=== PATIENT | male | born 1960 | race Caucasian/White ===

== ENCOUNTER 2019-01-01 11:16 | Inpatient (IN) | payer OTHER ==
[~2019-01-01] VITALS: Ht 180.3 cm; Wt 104.3 kg
--- NOTE | ~2019-01-01 | HC ---
[facility] [place] [address] CONSULTATION Name: LAKESHIA AGUILAR Room #: 423-1 ADM IN ..#: [id number] Admission: 01/01/19 ������������������ Attend Phys: aDniel Soriano MD Discharge: ������������������ Date of : 60 Report #: [id number] THIS REPORT FOR: //name// CC: FAM unknown Daniel Soriano DATE OF SERVICE: 01/02/2019 REASON FOR CONSULTATION: Right ankle fracture. HISTORY OF PRESENT ILLNESS: The patient is a 58-year-old male who was walking, slipped on the ice and fell. He was unable to ambulate on the right leg. He complained of ankle pain and deformity. ER physician reports no open wounds. He underwent a closed reduction in the Emergency Department under conscious sedation and was admitted with apparently a well-padded splint. REVIEW OF SYSTEMS: NEUROLOGIC: Denies numbness or tingling. MUSCULOSKELETAL: See HPI. ALLERGIES: No known drug allergies reported. MEDICATIONS: Include, ramipril, simvastatin, aspirin, omeprazole. PAST SURGICAL HISTORY: He had a cardiac stent placed. SOCIAL HISTORY: Denies smoking or drinking alcohol. 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 LABORATORY DATA: Shows white blood cell count 10.4, hemoglobin 14.6, hematocrit 41.1, platelet count 217. INR is 1. Chemistry is grossly normal. PHYSICAL EXAMINATION: EXTREMITIES: Examination of his right lower extremity, distally neurovascularly intact. Brisk capillary refill and sensation is intact. EHL, FHL is intact. He has significant amount of tenderness at the ankle. The skin is not taut. Wrinkle test is questionable. There is no knee pain. No tenderness to palpation with range of motion of the knee. RADIOGRAPHS: AP, lateral and an attempted mortise view post reduction shows persistently significantly displaced trimalleolar ankle fracture with most likely an anterolateral component. IMPRESSION AND PLAN: Right trimalleolar ankle fracture in a 58-year-old male. I discussed the diagnosis as well as treatment options. I also discussed this with my partner, Dr. Baldemar Brown who most likely will be performing the [facility] [address] [place] [address] CONSULTATION Name: LAKESHIA AGUILAR Room #: 423-1 [facility] IN [facility].#: [id number] Admission: 01/01/19 ������������������ Attend Phys: Daniel Soriano MD Discharge: ������������������ Date of : 60 Report #: [id number] surgery. I discussed the typical procedure as well as postoperative course and Dr. Brown will continue the conversation in the preoperative holding area. Thank you very much for allowing me to assist in the care of this patient. ��������������������������������������������� ���������������������������������������� By: ��������������������������������������������� 0824 1824 Blanka Newton MD /nt
[2019-01-01] MEDS ORDERED: ALTACE2.5 MG PO (11:19)
[2019-01-01] MEDS ORDERED: SIMVASTATIN40 MG PO (11:19)
[2019-01-01] MEDS ORDERED: PRILOSEC 20 MG20 MG PO (11:20)
[2019-01-01] MEDS ORDERED: ADULT ASPIRIN R81 MG PO (11:20)
[2019-01-01 11:22] VITALS: BP 127/74
[2019-01-01 14:37] LABS: ABSOLUTE NEUTROPHILS 8.7 thou/uL (1.4-8.2); BASOPHILS 0.5 % (0.0-2.0); EOSINOPHILS 1.2 % (0.0-3.0); HEMATOCRIT 40.5 % (42.0-52.0); HEMOGLOBIN 14.5 gm/dL (14.0-18.0); LYMPHOCYTES 10.3 % (24.0-44.0); MCH 34.8 pg (26.0-34.0); MCHC 35.9 g/dL (28.0-37.0); MCV 96.9 fL (80.0-100.0); MONOCYTES 4.5 % (1.0-8.0); PLATELET COUNT 227 thou/uL (150-400); POLYS 83.5 % (36.0-66.0); RBC 4.17 mil/uL (4.50-6.00); RDW 12.5 % (10.5-14.5); WBC 10.5 thou/uL (4.0-11.0)
[2019-01-01 14:45] LABS: CALCIUM 8.5 mg/dL (8.5-10.1); CREATININE 0.9 mg/dL (0.7-1.3); POTASSIUM 4.1 mmol/L (3.5-5.1)
[2019-01-01 15:16] VITALS: BP 118/85
[2019-01-01 15:45] VITALS: BP 130/62
[2019-01-01 15:57] VITALS: BP 133/87
[2019-01-01 20:18] VITALS: BP 162/94
--- NOTE | 2019-01-01 20:25 | NUR ---
VSS-AFEBRILE. PAIN NOT WELL CONTROLLED WITH PRESCRIBED IV PAIN MEDICATIONS. CALL PLACED TO PHYSICIAN, AWAITING CALL BACK. IRRITABLE THAT HE HAS TO KEEP SPLINT IN PLACE, EDUCATED ON IMPORTANCE OF KEEPING ANKLE IMMOBILE UNTIL ORTHOPEDIC SURGEON DECIDES HOW TO TREAT. DID NOT BRING CPAP FROM HOME, RT TO PLACE HOSPITAL CPAP UNTIL PATIENTS IS BROUGHT FROM HOME. ALL SENSATION IS INTACT TO RIGHT LEG AND ANKLE, WARM TOES, SWOLLEN AND BRUISED, DID NOT UNWRAP THE ANKLE. ELEVATED ON TWO PILLOWS FOR COMFORT. TOLERATES MEALS WITH NO REPORTED N/V. VOIDS USING URINAL WITHOUT DIFFICULTY. FALL AGREEMENT SIGNED.
[2019-01-01 23:59] VITALS: BP 157/90
[2019-01-02] VITALS (7 sets, daily range): BP systolic 135–153; BP diastolic 65–85
--- NOTE | 2019-01-02 06:26 | NUR ---
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
[2019-01-02 06:31] LABS: HEMATOCRIT 41.1 % (42.0-52.0); HEMOGLOBIN 14.6 gm/dL (14.0-18.0); MCH 34.7 pg (26.0-34.0); MCHC 35.5 g/dL (28.0-37.0); MCV 97.7 fL (80.0-100.0); RBC 4.21 mil/uL (4.50-6.00); RDW 12.5 % (10.5-14.5); WBC 10.4 thou/uL (4.0-11.0)
[2019-01-02 06:41] LABS: CALCIUM 8.9 mg/dL (8.5-10.1); CREATININE 0.9 mg/dL (0.7-1.3); POTASSIUM 3.6 mmol/L (3.5-5.1)
--- NOTE | 2019-01-02 08:55 | NUR ---
Assumed pt care at 7am.Pt in bed aleert and oriented x4.c/o rt ankle pain rated 7/10.Noc rn gave pt fentanyl ivp with relief.Dr Newton here,order noted.Pt left for surgery per bed at 0825 accompanied by transporter.
--- NOTE | 2019-01-02 18:57 | O ---
[facility] [place] [address] OPERATIVE REPORT Name: LAKESHIA AGUILAR Room #: 423-1 ADM IN M.R.#: [id number] Admission: 01/01/19 ������������������ Attend Phys: Daniel Soriano MD Discharge: ������������������ Date of : 60 Report #: [id number] THIS REPORT FOR: //name// CC: FAM unknown Daniel Soriano DATE OF SERVICE: 01/02/2019 PREOPERATIVE DIAGNOSIS: Right ankle trimalleolar fracture dislocation. POSTOPERATIVE DIAGNOSIS: Right ankle trimalleolar fracture dislocation. PROCEDURE: Open reduction and internal fixation of right ankle fracture. SURGEON: Baldemar Brown MD. INDICATIONS: This 58-year-old gentleman fell injuring the right ankle. X-rays confirm a badly comminuted unstable fracture dislocation with involvement of both the medial, lateral and posterior compartments. I have discussed this with the patient reviewing treatment options. We have discussed that there is a posterior fragment, which may be difficult to reduce, but seems to involve a relatively small percentage of the articular surface. We discussed how this might interfere with optimal fracture reduction and reviewed options of either posterior approach to address this or simply deal with the medial and lateral fragments and except some posterior fragment dislocation. He understands and appreciates going ahead with surgery today hoping that we can manage with the least aggressive and invasive approach. DESCRIPTION OF PROCEDURE: The patient was taken to the operating room where he was placed under general anesthesia. Prophylactic intravenous antibiotics were administered. The right leg, foot and ankle were meticulously prepped and draped. C-arm was used to visualize the fracture, initially was found to be moderately displaced and obviously unstable. A thigh tourniquet was applied and inflated to 300 mmHg. A medial skin incision was made exposing the medial malleolus. A relatively small fragment at the medial malleolus was identified and brought back into anatomic position. It was initially secured with 2 smooth K wires, which were overdrilled and then two cancellous screws were placed holding this fracture back in essentially anatomic position. Attention was then directed to the lateral aspect where a longitudinal skin incision was made. A comminuted fracture of the distal fibula was identified. This was thoroughly irrigated and then reduced essentially anatomically. An 8-hole plate was then applied. C-arm was used to visualize the fracture and screw placement. Two screws were placed distally in the fibula alone. Four screws were placed more proximally in the fibula alone. Two syndesmotic screws were placed, which added nicely to the overall stability and seemed to secure the mortise quite nicely. Position was assessed with C-arm and felt to be very satisfactory. At this [address] [address] OPERATIVE REPORT Name: LAKESHIA AGUILAR Room #: 423-1 ADM IN M.R.#: [id number] Admission: 01/01/19 ������������������ Attend Phys: Daniel Soriano MD Discharge: ������������������ Date of : 60 Report #: [id number] point, the ankle seemed to be well reduced and moved nicely with a satisfactory joint extension and flexion without any significant sense of crepitus. At this point, I tried to further improve the position of the posterior fragment, but found that I simply could not advance and remove this fragment in any satisfactory fashion. I did explore the posterior aspect of the tibia in a limited fashion through the medial incision. C-arm was used to visualize the fragment. This appears to involve about 20% of the articular surface in the posterior aspect. The remainder of the joint surface seems to be well aligned and stable. It was difficult to determine if this posterior fragment was simply locked in some fashion or whether possibly the medial malleolar screws might have impinged on this reduction to some extent. I considered whether the best option might be to remove those screws and further explore the posterior fragment or accept the current reduction. Ultimately, I felt there was already a fair amount of swelling and some early fracture blisters. The majority of the joint seemed to be well reduced and the ankle seems to be stable. I was concerned that I might lose my stability of the medial fragment if I adjust the fixation. Ultimately, I felt the best approach was probably to accept the current reduction and evaluate the joint with C-arm postoperatively and then reconsider whether any further reduction of the posterior fragment would be helpful or not. At this point, the tourniquet was deflated. Good hemostasis was established. The wounds were closed with 2-0 Monocryl and skin katty. A sterile dressing and plaster splint were applied holding the foot and ankle in neutral position. The patient was awakened and returned to recovery room in good condition. ��������������������������������������������� <ELECTRONICALLY SIGNED> ���������������������������������������� By: Baldemar Brown MD ��������������������������������������������� 01/02/19 1857 1142 1201 Baldemar Brown MD /massiel
--- NOTE | 2019-01-03 02:17 | NUR ---
Assumed care of pt at 1900. Pt alert and oriented x4. Post-op ORIF of right ankle. Plaster splint in place. Pain controlled with INCLUSION INTERN pump. Pt will d/c home with crutches. No other c/o at this time. Will continue to monitor.
[2019-01-03 04:29] VITALS: BP 114/65
[2019-01-03 05:56] LABS: HEMATOCRIT 37.9 % (42.0-52.0); HEMOGLOBIN 12.9 gm/dL (14.0-18.0); MCH 33.3 pg (26.0-34.0); MCV 98.1 fL (80.0-100.0); RBC 3.86 mil/uL (4.50-6.00); RDW 12.7 % (10.5-14.5); WBC 12.3 thou/uL (4.0-11.0)
[2019-01-03 06:05] LABS: CALCIUM 8.5 mg/dL (8.5-10.1); CREATININE 0.9 mg/dL (0.7-1.3); MAGNESIUM 2.1 mg/dL (1.8-2.4); POTASSIUM 3.4 mmol/L (3.5-5.1)
[2019-01-03 08:00] VITALS: BP 114/66
[2019-01-03 11:41] VITALS: BP 125/54
[2019-01-03] MEDS ORDERED: HYDROCODON-ACE1 EAC7 PO (13:03)
[2019-01-03 13:27] VITALS: BP 125/54
[2019-01-03] MEDS ORDERED: NORCO 10-325 T1 EACH PO (13:37)
--- NOTE | 2019-01-03 14:26 | NUR ---
Assumed pt care at 7am.Pt in bed active, happy and c/o less pain today. Assessment completed by raul student nurse from [place] with her instructor's supervision.Pt ambulated with crutches in hallways with therapy. Walker was recommended after therapy.Pt was upset later this afternoon related to pain med.He said he called out for pain med around 1300 but the med was given to him at 1320.Service recovery provided.Dc summary compiled and reviewed with pt. Saline lock dc prior to pt dc home at 1430 per wc accompanied by mom and volunteer.
--- NOTE | 2019-01-03 14:54 | NUR ---
PATIENT ADMITTED FOR A RIGHT ANKLE FRACTURE, IS NOW POSTOPERATIVE FOR AN ORIF. PATIENT WILL DISCHARGE HOME WITH A WALKER. HAD DIFFICULTY AMBULATING [facility] CRUTCHES. COMPLAINS OF ANKLE PAIN THROUGHOUT THE DAY, RELIEVED WT ORAL MEDICATIONS, UPSET WHEN MEDICATIONS WERE NOT ADMINISTERED SCHEDULED. DISCHARGED TO MOTHER IN WHEELCHAIR TO GO HOME.
--- NOTE | 2019-01-03 15:05 | NUR ---
I have reviewed and concur with student documentation.
--- NOTE | 2019-01-03 15:13 | NUR ---
INITIAL ASSESSMENT: Pt evaluated for d/c planning needs. Reviewed chart and spoke with nurse and pt. Pt is alert and oriented. Pt lives alone in house and was independent with ADL's prior to admission to the hospital. Pt has no DME and has not had home health. Pt said his mother is planning to stay with him on d/c from hospital. Referral sent to [facility] for home health. [facility] issued walker to pt. No other needs identified.
[2019-01-03 15:14] VITALS: BP 125/54
[2019-01-03 15:16] VITALS: BP 125/54
== END 2019-01-03 14:22 | disposition home health service (06) | DRG 492 ==
LOC: ER 11:16 → EROBS 14:58 → 4E 14:58 → ENTRNSPT 01-03 14:08 → EDTRNSPTSTS 01-03 14:10 → 4E 01-03 14:22
PROVIDERS: Student in an Organized Health Care Education/Training Program; ADMIT Internal Medicine
DX: S82.851A Displaced trimalleolar fracture of right lower leg, initial encounter for closed fracture (principal); E43 Unspecified severe protein-calorie malnutrition; I10 Essential (primary) hypertension; K21.9 Gastro-esophageal reflux disease without esophagitis; W00.0XXA Fall on same level due to ice and snow, initial encounter; I25.10 Atherosclerotic heart disease of native coronary artery without angina pectoris; E78.5 Hyperlipidemia, unspecified; Y93.01 Activity, walking, marching and hiking; Y92.89 Other specified places as the place of occurrence of the external cause; Y99.8 Other external cause status; Z95.5 Presence of coronary angioplasty implant and graft; Z79.82 Long term (current) use of aspirin; Z79.899 Other long term (current) drug therapy; Z23 Encounter for immunization
CPT/HCPCS: 10183; 10783; 50010; 50101; 50386; 51122; 51131; 51272; 51277; 51412; 51495; 51741; 56525; 56667; 57091; 57180; 62110; 62900; 64042; 70005